=== PATIENT | female | born 1970 | race Caucasian/White ===

== ENCOUNTER → 2019-02-06 | Outpatient (CLI) | payer BC, OTHER ==
[~2019-02-06] MED LIST: NO HOME MEDICATIONS
== END ==
LOC: MC.RAD 07:48
DX: Z12.31 Encounter for screening mammogram for malignant neoplasm of breast (principal); N63.10 Unspecified lump in the right breast, unspecified quadrant; N63.20 Unspecified lump in the left breast, unspecified quadrant

== ENCOUNTER → 2020-05-19 | Outpatient (CLI) | payer BC, OTHER | LOC: MC.RAD 13:10 | DX: Z12.31 Encounter for screening mammogram for malignant neoplasm of breast (principal); Z98.82 Breast implant status ==

== ENCOUNTER 2020-11-24 08:41 | Day surgery (SDC) | payer BC, OTHER ==
[~2020-11-24] VITALS: Ht 165.2 cm; Wt 119.7 kg
[2020-11-24] VITALS (9 sets, daily range): BP systolic 115–168; BP diastolic 71–84; PULSE 60–72; TEMP 98.5
[2020-11-24] MEDS ORDERED: BYSTOLIC20 MG PO (09:19)
[2020-11-24] MEDS ORDERED: SYNTHROID0.05 MG/TA PO (09:19)
[2020-11-24] MEDS ORDERED: ASPI325T6 PO (09:20)
[2020-11-24 09:32] LABS: HEMATOCRIT 41.9 % (37.0-47.0); HEMOGLOBIN 14.1 g/dl (12.5-16.0); MEAN CELL VOLUME 86 fl (80.0-100.0); MEAN CORPUSCULAR HEMOGLOBIN 29 pg (27.0-31.0); MEAN CORPUSCULAR HGB CONC 34 g/dl (33.0-37.0); MEAN PLATELET VOLUME 11.5 fl (7.4-10.4); PLATELET COUNT 212 K/mm3 (130-400); RED BLOOD COUNT 4.86 M/mm3 (4.10-5.30); REDCELL DISTRIBUTION WIDTH-CV 12.3 % (11.5-14.5)
[2020-11-24 09:40] LABS: INR 1.1 (0.8-3.0); PROTHROMBIN TIME 11.9 SECONDS (9.7-12.8)
[2020-11-24 09:43] LABS: CALCIUM 9.4 mg/dL (8.4-10.2); CREATININE, serum 0.75 (0.52-1.25); PARTIAL THROMBOPLASTIN TIME 35.4 SECONDS (26.0-37.0)
--- NOTE | 2020-11-24 10:56 | NUR ---
SEE MERGE DOCUMENTATION FOR MEDICATION ADMINISTRATION TIMES AND INTRA/POST PROCEDURE SEDATION ASSESSMENTS. RIGHT HAND BARBEAU TEST POSITIVE.
--- NOTE | 2020-11-24 12:00 | NUR ---
Report from Contreras ALEMAN . Transferred to EU12 by bed. Alert and oriented, denies pain and needs at this time. VSS. Right Tband with 15 cc air CD&I, pulses good and Cap refill < 3 secs noted.
--- NOTE | 2020-11-24 14:15 | NUR ---
15 CC air released from right Tband and dressing applied. INT discontinued intact.
--- NOTE | 2020-11-24 14:45 | NUR ---
Discharge instructions given. Transferred to private car by kalen
== END 2020-11-24 14:45 | disposition home or self-care (01) ==
LOC: COL.CAR 08:41
PROVIDERS: Internal Medicine Cardiovascular Disease
DX: R94.39 Abnormal result of other cardiovascular function study (principal); R01.1 Cardiac murmur, unspecified; I10 Essential (primary) hypertension; E03.9 Hypothyroidism, unspecified; Z79.82 Long term (current) use of aspirin; Z79.899 Other long term (current) drug therapy; Z79.890 Hormone replacement therapy
CPT/HCPCS: C1769; C1887; J1644; J2250; J3010; Q9967

== ENCOUNTER 2020-12-30 08:16 | Outpatient (CLI) | payer BC, OTHER ==
[2020-12-30] VITALS (7 sets, daily range): BP systolic 125–148; BP diastolic 68–98; PULSE 58–72; TEMP 98.3
[~2020-12-30] VITALS: Ht 165.2 cm; Wt 120.9 kg
[~2020-12-30 08:16] MED LIST changes: +ASPI325T6 PO; +BYSTOLIC20 MG PO; +SYNTHROID0.05 MG/TA PO
[2020-12-30 08:59] LABS: HEMOGLOBIN 13.7 g/dl (12.5-16.0); MEAN CELL VOLUME 87 fl (80.0-100.0); MEAN CORPUSCULAR HEMOGLOBIN 29 pg (27.0-31.0); MEAN CORPUSCULAR HGB CONC 33 g/dl (33.0-37.0); MEAN PLATELET VOLUME 10.8 fl (7.4-10.4); PLATELET COUNT 194 K/mm3 (130-400); RED BLOOD COUNT 4.74 M/mm3 (4.10-5.30); REDCELL DISTRIBUTION WIDTH-CV 12.5 % (11.5-14.5)
[2020-12-30 09:06] LABS: PROTHROMBIN TIME 11.6 SECONDS (9.7-12.8)
[2020-12-30 09:09] LABS: CALCIUM 8.9 mg/dL (8.4-10.2); CREATININE, serum 0.62 (0.52-1.25); POTASSIUM 4.2 mmol/L (3.4-5.0)
--- NOTE | 2020-12-30 10:10 | NUR ---
Report from Dinorah ALEMAN. Pt resting in bed and denies pain and needs at this time. VSS
--- NOTE | 2020-12-30 11:40 | NUR ---
INT discontinued intact.
--- NOTE | 2020-12-30 11:50 | NUR ---
Discharge instructions given. Transferred to private car by kalen
== END 2020-12-30 11:51 | disposition home or self-care (01) ==
LOC: COL.RAD 08:16
PROVIDERS: Internal Medicine Cardiovascular Disease
DX: I35.1 Nonrheumatic aortic (valve) insufficiency (principal)
CPT/HCPCS: J2704

== ENCOUNTER → 2021-07-07 | Outpatient (CLI) | payer BC, OTHER | LOC: MC.RAD 11:23 | DX: Z12.31 Encounter for screening mammogram for malignant neoplasm of breast (principal) ==

== ENCOUNTER → 2023-12-01 | Outpatient (CLI) | payer BC, OTHER | LOC: MC.RAD 06:58 | DX: Z12.31 Encounter for screening mammogram for malignant neoplasm of breast (principal) ==